=== PATIENT | male | born 1965 ===

== ENCOUNTER → 2021-03-03 | Outpatient (CLI) | payer OTHER | LOC: MHCPAIN 10:01 | DX: M53.3 Sacrococcygeal disorders, not elsewhere classified (principal); M54.5 Low back pain; M47.817 Spondylosis without myelopathy or radiculopathy, lumbosacral region; G89.29 Other chronic pain | CPT/HCPCS: G0463 ==

== ENCOUNTER → 2023-12-21 | Outpatient (CLI) | payer OTHER | LOC: MHCPAIN 09:16 | DX: M47.816 Spondylosis without myelopathy or radiculopathy, lumbar region (principal); M48.061 Spinal stenosis, lumbar region without neurogenic claudication | CPT/HCPCS: G0463 ==